=== PATIENT | female | born 1960 | race Caucasian/White ===

== ENCOUNTER 2024-06-26 20:29 | Emergency (ER) | payer MEDICARE, OTHER ==
[2024-06-26] MEDS: Ondansetron 4 MG/2 ML SDV IVPUSH ONE (21:19)
[2024-06-26] MEDS: HYDROmorphone 0.5 MG/0.5 ML Syringe IVPUSH ONE (21:19)
[2024-06-26 21:20] LABS: BASOPHILS PERCENT AUTO 0.2 % (0.0-1.0); EOSINOPHILS PERCENT AUTO 0.1 % (0.0-6.0); HEMOGLOBIN 13.8 gm/dl (12.0-16.0); IMMATURE GRAN ABSOLUTE AUTO 0.01 K/mm3 (0.00-0.05); IMMATURE GRAN PERCENT AUTO 0.1 % (0.0-0.4); LYMPHOCYTES ABSOLUTE AUTO 0.8 K/mm3 (1.0-4.8); MEAN CORPUSCULAR HGB CONC 34.5 g/dl (32.0-36.0); MONOCYTES ABSOLUTE AUTO 0.5 K/mm3 (0.0-0.8); NEUTROPHILS ABSOLUTE AUTO 6.8 K/mm3 (1.8-7.7); NEUTROPHILS PERCENT AUTO 83.6 % (41.0-71.0); PLATELET COUNT,PLT 278 K/mm3 (150-400); WHITE BLOOD CELL COUNT,WBC 8.16 K/mm3 (3.9-11.3)
[2024-06-26] MEDS: Sodium Chloride 0.9% 1,000 ML IV STA (21:20)
[2024-06-26] MEDS: Sodium Chloride 0.9% 10 ML Syringe FLUSH PRN (21:20)
[2024-06-26 21:44] LABS: ALBUMIN 3.7 g/dl (3.4-5.0); ANION GAP 15.2 (5-15); BILIRUBIN TOTAL 1.4 mg/dL (0.2-1.0); BUN/CREATININE RATIO 12.7 (14-18); C-REACTIVE PROTEIN 0.13 mg/dL (<0.30); CALCIUM 9.3 mg/dL (8.5-10.1); CREATININE 1.5 mg/dL (0.55-1.02); EST CRCL DRUG DOSING (CG) 33.65 mL/min; POTASSIUM,K 4.2 mEq/L (3.5-5.1); PROTEIN TOTAL,TP 7.3 g/dl (6.4-8.2)
[2024-06-26] MEDS: Iopamidol 755 Mg/ML 100 ML Bottle IVPUSH ONE (22:36)
[2024-06-26] MEDS: Sodium Chloride 0.9% 10 ML Syringe FLUSH ONE (22:36)
== END 2024-06-26 23:43 | disposition home or self-care (01) ==
LOC: JD.ED 20:29
DX: K52.9 Noninfective gastroenteritis and colitis, unspecified (principal); Z79.899 Other long term (current) drug therapy
CPT/HCPCS: 36415; 74177; 80053; 85025; 86140; J1170; J2405; J3490; J7030; Q9967